=== PATIENT | female | born 1960 | race African-American/Black ===

== ENCOUNTER 2017-01-08 01:34 | Inpatient (IN) | payer OTHER ==
[~2017-01-08] VITALS: Ht 160 cm; Wt 58.1 kg
[2017-01-08] VITALS (7 sets, daily range): BP systolic 108–151; BP diastolic 68–99
[2017-01-08] MEDS ORDERED: Solu-MEDROL 125mg Inj IVP ONE (01:45)
[2017-01-08] MEDS ORDERED: Ipratropium 0.02% Inh Soln 2.5ml UD HHN ONE (01:45)
[2017-01-08] MEDS ORDERED: Albuterol ud Inhalation HHN ONE (01:45)
--- NOTE | 2017-01-08 02:20 | Emergency Room Report ---
History of Present Illness General Chief Complaint: Dyspnea/Respdistress Source: Patient, Family Member, EMS Present Illness HPI This is a 56-year-old female who has a history of asthma and heart failure. She was a smoker but supposedly quit 2 weeks ago. She also has history of crack cocaine abuse per her brother. She supposedly quit also. She usually lives in [place]. She moved back to this area to take care of her mom. She called brother jonna saying that she felt very short of breath. He told her to call 911. She tried to drive to see him. She came to see her and saw that there was a half smoke cigarettes in the doorway. She was in severe rest or distress so he called 911. EMS said that she was found in a car and was very hypoxic and respiratory distress. They put her on oxygen brought her here. She refused an IV. Denies any smoking or drug use. Said her inhaler is not helping her. She was using Dulera. Allergies: Coded Allergies: No Known Allergies (Unverified , 01/08/17) Patient History Past Medical History: see triage record, old chart reviewed, CHF, asthma Past Surgical History: other Pertinent Family History: none Social History: Reports: drug use - History, smoking Last Menstrual Period: unk Now: No Immunizations: other Reviewed Nursing Documentation: PMH: Agreed, PSxH: Agreed Nursing Documentation-PMH Past Medical History: No History, Except For Hx Asthma: Yes Review of Systems Eye: Denies: blurred vision, eye pain ENT: Denies: ear pain, nose congestion, throat swelling Respiratory: Reports: shortness of breath, Denies: cough Cardiovascular: Denies: chest pain, palpitations Gastrointestinal: Denies: abdominal pain, diarrhea, nausea, vomiting Musculoskeletal: Denies: back pain, joint pain Skin: Denies: rash Neurological: Denies: headache, numbness Endocrine: Denies: increased thirst, increased urine Hematologic/Lymphatic: Denies: easy bruising All Other Systems: negative except mentioned in HPI Physical Exam Vital Signs Date Time Temp Pulse Resp B/P Pulse Ox O2 Delivery O2 Flow Rate FiO2 01/08/17 01:25 98.2 105 22 150/111 98 Simple Mask 01/08/17 01:46 4.0 36 vitals with hypertension and tachycardia. Sp02 EP Interpretation: abnormal General Appearance: moderate distress, thin Head: normocephalic, atraumatic Eyes: bilateral eye EOMI, bilateral eye PERRL ENT: hearing grossly normal, normal pharynx Neck: full range of motion, supple, no meningismus, other - JVD Respiratory: chest non-tender, respiratory distress, decreased breath sounds, rales, wheezing Cardiovascular #1: regular rate, rhythm, no murmur, tachycardia Gastrointestinal: normal bowel sounds, non tender, no mass, no organomegaly, no bruit, non-distended Musculoskeletal: back normal, gait/station normal, normal range of motion Neurologic: alert, oriented x3, responsive Psychiatric: anxious - Combative Skin: warm/dry Procedures Critical Care Time Critical Care Time Critical care is mandated in this patient who presented with acute respiratory failure from cocaine and CHF. Patient require my urgent intervention to attenuate the risks of respiratory collapse which may lead to cardiovascular collapse and . Critical care time is 35 minutes excluding any reportable procedure. Critical care time included evaluation, multiple reevaluation, looking at old charts, interpreting laboratory and diagnostic data, discussing case with patient and family and consultants, and charting. Additional Procedure Procedure Narrative Procedure: IV access Indication: Poor IV access Description: Nursing staff was having difficulty putting peripheral IV in her arms she was not cooperative. I convinced her to let me placed an EJ. I placed an 18-gauge left EJ without any difficulty. Patient tolerated procedure without a problem. Medical Decision Making Diagnostic Impression: Primary Impression: Acute respiratory failure with hypoxia Additional Impressions: CHF exacerbation Qualified Codes: I50.9 - Heart failure, unspecified Asthma exacerbation Cocaine abuse Hypertensive CHF (congestive heart failure) UTI (urinary tract infection) Qualified Codes: N30.00 - Acute cystitis without hematuria Proteinuria Qualified Codes: R80.9 - Proteinuria, unspecified ER Course Patient presents with acute respiratory failure secondary to CHF exacerbation and asthma. She required BiPAP initially. She received treatment and Lasix. She diuresed about 1 L. She is doing much better now. Able to wean off the BiPAP 2 days of cannula oxygenation. No evidence of ACS, PE, dissection. We' ll admit for further workup. Laboratory Tests Test 01/08/17 02:00 White Blood Count 5.3 K/UL (4.8-10.8) Red Blood Count 4.24 M/UL (4.20-5.40) Hemoglobin 12.4 G/DL (12.0-16.0) Hematocrit 40.0 % (37.0-47.0) Mean Corpuscular Volume 94 FL (80-99) Mean Corpuscular Hemoglobin 29.3 PG (27.0-31.0) Mean Corpuscular Hemoglobin Concent 31.1 G/DL (32.0-36.0) L Red Cell Distribution Width 14.5 % (11.6-14.8) Platelet Count 181 K/UL (150-450) Mean Platelet Volume 6.4 FL (6.5-10.1) L Neutrophils (%) (Auto) 64.8 % (45.0-75.0) Lymphocytes (%) (Auto) 29.1 % (20.0-45.0) Monocytes (%) (Auto) 4.5 % (1.0-10.0) Eosinophils (%) (Auto) 0.5 % (0.0-3.0) Basophils (%) (Auto) 1.1 % (0.0-2.0) Prothrombin Time 11.1 SEC (9.30-11.50) Prothromb Time International Ratio 1.1 (0.9-1.1) Activated Partial Thromboplast Time 26 SEC (23-33) Urine Color Pale yellow Urine Appearance Clear Urine pH 5 (4.5-8.0) Urine Specific [place] 1.020 (1.005-1.035) Urine Protein 2+ (NEGATIVE) H Urine Glucose (UA) Negative (NEGATIVE) Urine Ketones Negative (NEGATIVE) Urine Occult Blood Negative (NEGATIVE) Urine Nitrite Negative (NEGATIVE) Urine Bilirubin Negative (NEGATIVE) Urine Urobilinogen Normal MG/DL (0.0-1.0) Urine Leukocyte Esterase 2+ (NEGATIVE) H Urine RBC 2-4 /HPF (0 - 2) H Urine WBC 15-20 /HPF (0 - 2) H Urine Squamous Epithelial Cells Few /LPF (NONE/OCC) Urine Amorphous Sediment Moderate /LPF (NONE) H Urine Bacteria Moderate /HPF (NONE) H Sodium Level 139 mEQ/L (135-145) Potassium Level 4.5 mEQ/L (3.4-4.9) Chloride Level 100 mEQ/L (98-107) Carbon Dioxide Level 24 mEQ/L (20-30) Anion Gap 15 (5-15) Blood Urea Nitrogen 22 mg/dL (7-23) Creatinine 1.2 mg/dL (0.5-0.9) H Estimat Glomerular Filtration Rate 56.1 mL/min (>60) Glucose Level 172 mg/dL (74-106) H Lactic Acid Level 1.30 mmol/L (0.66-2.22) Calcium Level 9.5 mg/dL (8.6-10.2) Total Bilirubin 0.6 mg/dL (0.0-1.2) Aspartate Amino Transf (AST/SGOT) 25 U/L (5-40) Alanine Aminotransferase (ALT/SGPT) 37 U/L (3-33) H Alkaline Phosphatase 141 U/L (35-104) H Total Creatine Kinase 92 U/L (26-140) Creatine Kinase MB 2.6 ng/mL (< 3.8) Creatine Kinase MB Relative Index 2.8 Troponin I < 0.30 ng/mL (<=0.30) Pro-B-Type Natriuretic Peptide 5028 pg/mL (0-125) H Total Protein 6.6 g/dL (6.6-8.7) Albumin 3.7 g/dL (3.5-5.2) Globulin 2.9 g/dL Albumin/Globulin Ratio 1.2 (1.0-2.7) Urine Opiates Screen Negative (NEGATIVE) Urine Barbiturates Screen Negative (NEGATIVE) Phencyclidine (PCP) Screen Negative (NEGATIVE) Urine Amphetamines Screen Negative (NEGATIVE) Urine Benzodiazepines Screen Negative (NEGATIVE) Urine Cocaine Screen Positive (NEGATIVE) H Urine Marijuana (THC) Screen Negative (NEGATIVE) Lab Results Impression labs show elevated BNP EKG Diagnostic Results Rate: normal Rhythm: NSR ST Segments: other - LBBB. Rhythm Strip Diag. Results EP Interpretation: yes Rate: 96 Rhythm: NSR, no PVC's, no ectopy Chest X-Ray Diagnostic Results EP Interpretation: Yes Findings: no effusion, no pneumothorax, other - CHF Number of Views: 1 Last Vital Signs Date Time Temp Pulse Resp B/P Pulse Ox O2 Delivery O2 Flow Rate FiO2 01/08/17 02:11 93 26 100 Bi-pap 35 01/08/17 01:48 4.0 01/08/17 01:25 98.2 150/111 Status: improved Disposition: ADMITTED INPATIENT Condition: Critical Referrals: [facility],REFERRING (PCP) HAYES FOY M.D. Jan 08, 2017 02:20
[2017-01-08 02:26] LABS: BASOPHILS % (AUTO) 1.1 % (0.0-2.0); EOSINOPHILS % (AUTO) 0.5 % (0.0-3.0); LYMPHOCYTES % (AUTO) 29.1 % (20.0-45.0); MEAN CORPUSCULAR HEMOGLOBIN 29.3 PG (27.0-31.0); MEAN CORPUSCULAR HGB CONC 31.1 G/DL (32.0-36.0); MEAN CORPUSCULAR VOLUME 94 FL (80-99); MEAN PLATELET VOLUME 6.4 FL (6.5-10.1); MONOCYTES % (AUTO) 4.5 % (1.0-10.0); NEUTROPHILS % (AUTO) 64.8 % (45.0-75.0); PLATELET COUNT 181 K/UL (150-450); RED BLOOD COUNT 4.24 M/UL (4.20-5.40); RED CELL DISTRIBUTION WIDTH 14.5 % (11.6-14.8); WHITE BLOOD COUNT 5.3 K/UL (4.8-10.8)
[2017-01-08 02:30] LABS: APPEARANCE,URINE CLEAR; KETONES,URINE NEGATIVE (NEGATIVE); LEUKOCYTE ESTERASE ,URINE 2+ (NEGATIVE); NITRITE,URINE NEGATIVE (NEGATIVE); PH,URINE 5 (4.5-8.0); PROTEIN,URINE 2+ (NEGATIVE); UROBILINOGEN,URINE NORMAL MG/DL (0.0-1.0)
[2017-01-08 02:35] LABS: SQUAMOUS EPITHELIAL CELL,UR FEW /LPF (NONE/OCC); WBC,URINE 15-20 /HPF (0 - 2)
[2017-01-08 02:36] LABS: AMORPHOUS SEDIMENT,UR MODERATE /LPF; BACTERIA,URINE MODERATE /HPF
[2017-01-08 02:39] LABS: ALBUMIN/GLOBULIN RATIO 1.2 (1.0-2.7); CALCIUM 9.5 mg/dL (8.6-10.2); CREATININE 1.2 mg/dL (0.5-0.9); GLOMERULAR FILTRATION RATE 56.1 mL/min (>60); POTASSIUM 4.5 mEQ/L (3.4-4.9); TOTAL PROTEIN 6.6 g/dL (6.6-8.7)
[2017-01-08 02:40] LABS: INR 1.1 (0.9-1.1); PROTHROMBIN TIME 11.1 SEC (9.30-11.50)
[2017-01-08 02:41] LABS: TROPONIN I < 0.30 ng/mL (<=0.30)
[2017-01-08 02:50] LABS: CKMB 2.6 ng/mL (< 3.8)
[2017-01-08] MEDS ORDERED: cefTRIAXone 1 GM in NS 55 ML IVPB ONE (03:00)
[2017-01-08] MEDS ORDERED: Tubing IV Cassette IV ONE (03:01)
[2017-01-08] MEDS ORDERED: NS 55 ML IV ONE (03:01)
[2017-01-08] MEDS ORDERED: DULERA 100 MCG/13 GM INH (03:38)
[2017-01-08] MEDS ORDERED: Miralax 17gm pkt ORAL PRN (06:15)
[2017-01-08] MEDS ORDERED: DuoNeb 0.5-3(2.5)mg/3ml neb HHN PRN (06:15)
--- NOTE | 2017-01-08 08:45 | Diagnostic Imaging Report ---
Indications: Shortness of breath Technique: Portable AP chest Findings: Comparison: None Cardiac silhouette enlarged. Pulmonary vascular redistribution. Bilateral interstitial infiltrates. Linear and patchy opacities in the lateral aspect of right lung base, overlying elevated left hemidiaphragm. Left costophrenic angle mildly indistinct; right sharp. Aortic arch mildly calcified. IMPRESSION: Findings compatible with congestive heart failure with interstitial edema and suggestion of small left pleural effusion Superimposed subsegmental atelectasis left lung base with elevation of the subjacent left hemidiaphragm, acuity indeterminate. Superimposed focal pneumonia not excludable.
[2017-01-08] MEDS: Heparin 5000 units/ml inj SUBQ SCH ×2 (09:00→21:00)
--- NOTE | 2017-01-08 11:24 | History and Physical ---
History of Present Illness General Date patient seen: Jan 08, 2017 Reason for Hospitalization: Dyspnea/Respdistress Present Illness HPI 56-year-old female with hx of COPD, CHF, various drug abuse, who has a history of asthma and heart failure brought in by paramedics b/o respiratory distress. EMS said that she was found in a car and was very hypoxic and respiratory distress. She was put on BIPAp in in Er and received lasix in ER. she improved somewhat and was transferred to telemetry for further work up. Allergies: Coded Allergies: No Known Allergies (Unverified , 01/08/17) Medication History Scheduled Mometasone/Formoterol (Dulera 100 Mcg/5 Mcg Inhaler), 2 PUFFS INH EVERY 12 HOURS , (Reported) Patient History Healthcare decision maker Resuscitation status Full Code Advanced Directive on File No Past Medical/Surgical History Past Medical/Surgical History: (1) COPD (chronic obstructive pulmonary disease) (2) CHF (congestive heart failure) (3) Cocaine abuse Review of Systems All Other Systems: negative except mentioned in HPI Physical Exam General Appearance: WD/WN Lines, tubes and drains: peripheral HEENT: normocephalic, atraumatic Neck: non-tender, normal alignment Respiratory/Chest: chest wall non-tender, rhonchi - bilaterally Breasts: no masses Cardiovascular/Chest: normal peripheral pulses Abdomen: normal bowel sounds Genitourinary/Rectal: normal genital exam Extremities: normal range of motion Last 24 Hour Vital Signs Date Time Temp Pulse Resp B/P Pulse Ox O2 Delivery O2 Flow Rate FiO2 01/08/17 08:20 Nasal Cannula 4.0 36 01/08/17 08:20 102 25 Nasal Cannula 4.0 36 01/08/17 08:20 96 Nasal Cannula 4.0 36 01/08/17 08:00 97.7 92 21 132/76 98 Room Air 01/08/17 05:03 91 18 128/82 98 Nasal Cannula 4.0 01/08/17 04:55 97.0 97 20 143/97 91 Nasal Cannula 2.0 01/08/17 03:37 96 18 100 3.0 32 01/08/17 03:33 91 18 128/82 100 Bi-pap 35 01/08/17 02:29 90 20 151/99 98 Bi-pap 35 01/08/17 02:15 35 01/08/17 02:11 93 26 100 Bi-pap 35 01/08/17 02:10 93 26 100 Facial 35 01/08/17 01:48 105 25 97 Nasal Cannula 4.0 36 01/08/17 01:48 36 01/08/17 01:46 105 25 Nasal Cannula 4.0 36 01/08/17 01:40 105 35 Simple Mask 4.0 01/08/17 01:25 98.2 105 22 150/111 98 Simple Mask Intake and Output 01/07/17 01/08/17 19:00 07:00 Intake Total 55 ml Output Total 3700 ml Balance -3645 ml Intake IV Total 55 ml Output Urine Total 3700 ml Laboratory Tests Test 01/08/17 02:00 White Blood Count 5.3 K/UL (4.8-10.8) Red Blood Count 4.24 M/UL (4.20-5.40) Hemoglobin 12.4 G/DL (12.0-16.0) Hematocrit 40.0 % (37.0-47.0) Mean Corpuscular Volume 94 FL (80-99) Mean Corpuscular Hemoglobin 29.3 PG (27.0-31.0) Mean Corpuscular Hemoglobin Concent 31.1 G/DL (32.0-36.0) L Red Cell Distribution Width 14.5 % (11.6-14.8) Platelet Count 181 K/UL (150-450) Mean Platelet Volume 6.4 FL (6.5-10.1) L Neutrophils (%) (Auto) 64.8 % (45.0-75.0) Lymphocytes (%) (Auto) 29.1 % (20.0-45.0) Monocytes (%) (Auto) 4.5 % (1.0-10.0) Eosinophils (%) (Auto) 0.5 % (0.0-3.0) Basophils (%) (Auto) 1.1 % (0.0-2.0) Prothrombin Time 11.1 SEC (9.30-11.50) Prothromb Time International Ratio 1.1 (0.9-1.1) Activated Partial Thromboplast Time 26 SEC (23-33) Urine Color Pale yellow Urine Appearance Clear Urine pH 5 (4.5-8.0) Urine Specific [place] 1.020 (1.005-1.035) Urine Protein 2+ (NEGATIVE) H Urine Glucose (UA) Negative (NEGATIVE) Urine Ketones Negative (NEGATIVE) Urine Occult Blood Negative (NEGATIVE) Urine Nitrite Negative (NEGATIVE) Urine Bilirubin Negative (NEGATIVE) Urine Urobilinogen Normal MG/DL (0.0-1.0) Urine Leukocyte Esterase 2+ (NEGATIVE) H Urine RBC 2-4 /HPF (0 - 2) H Urine WBC 15-20 /HPF (0 - 2) H Urine Squamous Epithelial Cells Few /LPF (NONE/OCC) Urine Amorphous Sediment Moderate /LPF (NONE) H Urine Bacteria Moderate /HPF (NONE) H Sodium Level 139 mEQ/L (135-145) Potassium Level 4.5 mEQ/L (3.4-4.9) Chloride Level 100 mEQ/L (98-107) Carbon Dioxide Level 24 mEQ/L (20-30) Anion Gap 15 (5-15) Blood Urea Nitrogen 22 mg/dL (7-23) Creatinine 1.2 mg/dL (0.5-0.9) H Estimat Glomerular Filtration Rate 56.1 mL/min (>60) Glucose Level 172 mg/dL (74-106) H Lactic Acid Level 1.30 mmol/L (0.66-2.22) Calcium Level 9.5 mg/dL (8.6-10.2) Total Bilirubin 0.6 mg/dL (0.0-1.2) Aspartate Amino Transf (AST/SGOT) 25 U/L (5-40) Alanine Aminotransferase (ALT/SGPT) 37 U/L (3-33) H Alkaline Phosphatase 141 U/L (35-104) H Total Creatine Kinase 92 U/L (26-140) Creatine Kinase MB 2.6 ng/mL (< 3.8) Creatine Kinase MB Relative Index 2.8 Troponin I < 0.30 ng/mL (<=0.30) Pro-B-Type Natriuretic Peptide 5028 pg/mL (0-125) H Total Protein 6.6 g/dL (6.6-8.7) Albumin 3.7 g/dL (3.5-5.2) Globulin 2.9 g/dL Albumin/Globulin Ratio 1.2 (1.0-2.7) Urine Opiates Screen Negative (NEGATIVE) Urine Barbiturates Screen Negative (NEGATIVE) Phencyclidine (PCP) Screen Negative (NEGATIVE) Urine Amphetamines Screen Negative (NEGATIVE) Urine Benzodiazepines Screen Negative (NEGATIVE) Urine Cocaine Screen Positive (NEGATIVE) H Urine Marijuana (THC) Screen Negative (NEGATIVE) Height (Feet): 5 Height (Inches): 3.00 Weight (Pounds): 145 Medications Current Medications Medications (Trade) Dose Ordered Sig/Suzanne Route PRN Reason Start Time Stop Time Status Last Admin Dose Admin Acetaminophen (Tylenol) 650 mg Q4H PRN ORAL Fever 01/08/17 06:15 02/07/17 06:14 01/08/17 10:51 Albuterol/ Ipratropium (DuoNeb 0.5-3(2.5)mg/3ml) 3 ml EVERY 4 HOURS PRN HHN Shortness of Breath 01/08/17 06:15 01/13/17 06:14 Dextrose (Dextrose 50%) STAT PRN IV Hypoglycemia 01/08/17 06:15 02/07/17 06:14 Heparin Sodium (Porcine) (Heparin 5000 units/ml) 5,000 units EVERY 12 HOURS SUBQ 01/08/17 09:00 02/07/17 08:59 Ondansetron HCl (Zofran) 4 mg Q6H PRN IVP Nausea & Vomiting 01/08/17 06:15 02/07/17 06:14 Polyethylene Glycol (Miralax) 17 gm DAILYPRN PRN ORAL Constipation 01/08/17 06:15 02/07/17 06:14 Temazepam (Restoril) 15 mg HSPRN PRN ORAL Insomnia 01/08/17 06:15 01/15/17 06:14 01/08/17 10:46 Assessment/Plan Problem List: (1) Acute respiratory failure with hypoxia ICD Codes: J96.01 - Acute respiratory failure with hypoxia SNOMED: 18822634, 301123491 (2) COPD (chronic obstructive pulmonary disease) ICD Codes: J44.9 - Chronic obstructive pulmonary disease, unspecified SNOMED: 63200372 (3) CHF exacerbation ICD Codes: I50.9 - Heart failure, unspecified SNOMED: 76382152, 560255374 Qualifiers: Qualified Codes: I50.9 - Heart failure, unspecified (4) Asthma exacerbation ICD Codes: J45.901 - Unspecified asthma with (acute) exacerbation SNOMED: 671858310 (5) Cocaine abuse ICD Codes: F14.10 - Cocaine abuse, uncomplicated SNOMED: 94430443, 727383151 Assessment/Plan iv abx diuretics sputum for c/w respiratory rx check sputum cardio to see as well cxr in a few days VIRGIL DUFFY Jan 08, 2017 11:24
--- NOTE | 2017-01-08 13:33 | Diagnostic Imaging Report ---
Indications: Elevated renal function tests Technique: Transabdominal real-time grayscale and duplex Doppler imaging of the kidneys, retroperitoneum, and urinary bladder was performed Findings: Comparison: None Right kidney measures 10.4 cm in length. Normal contour, echotexture, cortical thickness. No stones, other focal lesions, hydronephrosis, or obvious perinephric abnormalities. Left kidney measures 10.1 cm in length. Normal contour, echotexture, cortical thickness. No stones, other focal lesions, hydronephrosis, or obvious perinephric abnormalities. The intrahepatic portion of inferior vena cava is patent and normal caliber. The urinary bladder is distended despite Salas catheter in place.. IMPRESSION: Sonographically unremarkable kidneys Urinary bladder distention. Check Salas patency.
--- NOTE | 2017-01-08 23:06 | Diagnostic Imaging Report ---
APPROVED REPORT CPT Code: 10324 Present Symptoms Shortness of breath Comments: Pain BILATERAL: Imaging reveals a patent deep venous system bilaterally. There is no evidence of thrombus within the femoral, popliteal or tibial segments. The greater saphenous veins are also within normal limits. Doppler indicates normal spontaneous flow within these segments.
[2017-01-09 00:23] VITALS: BP 119/67
[2017-01-09 04:07] VITALS: BP 122/77
[2017-01-09 08:12] VITALS: BP 127/85
[2017-01-09] MEDS: Heparin 5000 units/ml inj SUBQ SCH ×2 (08:49→21:23)
[2017-01-09 10:08] LABS: EOSINOPHILS % (AUTO) 0.4 % (0.0-3.0); LYMPHOCYTES % (AUTO) 21.4 % (20.0-45.0); MEAN CORPUSCULAR HEMOGLOBIN 29.4 PG (27.0-31.0); MEAN CORPUSCULAR HGB CONC 31.4 G/DL (32.0-36.0); MEAN CORPUSCULAR VOLUME 94 FL (80-99); MEAN PLATELET VOLUME 7.2 FL (6.5-10.1); MONOCYTES % (AUTO) 6.2 % (1.0-10.0); PLATELET COUNT 302 K/UL (150-450); WHITE BLOOD COUNT 8.4 K/UL (4.8-10.8)
[2017-01-09] MEDS ORDERED: NS 275ml ONE (10:16)
[2017-01-09] MEDS ORDERED: Tubing IV Secondary IV ONE (10:16)
[2017-01-09 10:22] LABS: TROPONIN I < 0.30 ng/mL (<=0.30)
[2017-01-09 10:37] LABS: CALCIUM 9.8 mg/dL (8.6-10.2); CREATININE 1.3 mg/dL (0.5-0.9); GLOMERULAR FILTRATION RATE 51.1 mL/min (>60); PHOSPHORUS 4.3 mg/dL (2.5-4.8); POTASSIUM 4.3 mEQ/L (3.4-4.9)
--- NOTE | 2017-01-09 10:57 | Diagnostic Imaging Report ---
Indication: DYSPNEA, cough Technique: One view of the chest Comparison: 01/08/2017 Findings: The heart is enlarged. Bilateral interstitial and airspace opacities are again demonstrated, appear unchanged. There may be a small pleural effusion on the left. Again demonstrated is an old healed right clavicular fracture deformity. Impression: Unchanged, over one day, findings as above.
[2017-01-09 12:15] VITALS: BP 132/85
--- NOTE | 2017-01-09 14:27 | Pulmonology Progress Note ---
Assessment/Plan Problems: (1) Acute respiratory failure with hypoxia (2) COPD (chronic obstructive pulmonary disease) (3) CHF exacerbation (4) Asthma exacerbation (5) Cocaine abuse Assessment/Plan improving cxr didnt show much changes respiratory treatment. awaiting cardiology continue lasix Subjective ROS Limited/Unobtainable: No Interval Events: less short of breath Constitutional: Reports: no symptoms HEENT: Repors: no symptoms Respiratory: Reports: no symptoms Allergies: Coded Allergies: No Known Allergies (Unverified , 01/08/17) Objective Last 24 Hour Vital Signs Date Time Temp Pulse Resp B/P Pulse Ox O2 Delivery O2 Flow Rate FiO2 01/09/17 12:15 97.8 91 20 132/85 99 Room Air 01/09/17 12:00 96 01/09/17 09:20 99 Nasal Cannula 2.0 28 01/09/17 09:20 Nasal Cannula 2.0 28 01/09/17 09:19 82 23 Nasal Cannula 2.0 28 01/09/17 08:12 97.3 93 20 127/85 95 Nasal Cannula 3.5 01/09/17 08:00 96 01/09/17 04:07 98.3 83 17 122/77 95 Room Air 01/09/17 04:00 99 01/09/17 00:23 98.8 88 19 119/67 97 Room Air 01/09/17 00:00 89 01/08/17 22:58 94 01/08/17 20:36 Nasal Cannula 2.0 28 01/08/17 20:36 99 Nasal Cannula 2.0 28 01/08/17 20:36 97 22 Nasal Cannula 2.0 28 01/08/17 20:00 98.0 92 18 115/71 97 Room Air 01/08/17 17:56 97.9 01/08/17 16:00 96 01/08/17 15:56 97.9 90 20 110/68 96 Nasal Cannula 2.0 Intake and Output 01/08/17 01/09/17 19:00 07:00 Intake Total 250 ml Output Total 400 ml 1300 ml Balance -150 ml -1300 ml Intake Oral 250 ml Output Urine Total 400 ml 1300 ml General Appearance: WD/WN HEENT: normocephalic, atraumatic Respiratory/Chest: chest wall non-tender, lungs clear Cardiovascular: normal peripheral pulses, normal rate Abdomen: normal bowel sounds, soft, non tender Genitourinary: normal external genitalia Extremities: no clubbing Skin: no rash Microbiology Date/Time Source Procedure Growth Status 01/08/17 02:00 Blood Blood Culture - Preliminary NO GROWTH AFTER 24 HOURS Resulted 01/08/17 01:45 Blood Blood Culture - Preliminary NO GROWTH AFTER 24 HOURS Resulted 01/08/17 02:00 Urine,Clean Catch Urine Culture - Preliminary NO GROWTH AFTER 24 HOURS Resulted Laboratory Tests 01/09/17 09:30: White Blood Count 8.4#, Red Blood Count 4.90, Hemoglobin 14.4, Hematocrit 45.9, Mean Corpuscular Volume 94, Mean Corpuscular Hemoglobin 29.4, Mean Corpuscular Hemoglobin Concent 31.4L, Red Cell Distribution Width 14.0, Platelet Count 302# , Mean Platelet Volume 7.2, Neutrophils (%) (Auto) 71.0, Lymphocytes (%) (Auto) 21.4, Monocytes (%) (Auto) 6.2, Eosinophils (%) (Auto) 0.4, Basophils (%) (Auto ) 1.0, Sodium Level 141, Potassium Level 4.3, Chloride Level 99, Carbon Dioxide Level 27, Anion Gap 15, Blood Urea Nitrogen 26H, Creatinine 1.3H, Estimat Glomerular Filtration Rate 51.1, Glucose Level 120H, Calcium Level 9.8, Phosphorus Level 4.3, Troponin I < 0.30, Albumin 3.7 Current Medications Medications (Trade) Dose Ordered Sig/Suzanne Route PRN Reason Start Time Stop Time Status Last Admin Dose Admin Acetaminophen (Tylenol) 650 mg Q4H PRN ORAL Fever 01/08/17 06:15 02/07/17 06:14 01/09/17 00:22 Albuterol/ Ipratropium (DuoNeb 0.5-3(2.5)mg/3ml) 3 ml EVERY 4 HOURS PRN HHN Shortness of Breath 01/08/17 06:15 01/13/17 06:14 Dextrose STAT PRN IV Hypoglycemia 01/08/17 06:15 02/07/17 06:14 Heparin Sodium (Porcine) (Heparin 5000 units/ml) 5,000 units EVERY 12 HOURS SUBQ 01/08/17 09:00 02/07/17 08:59 01/09/17 08:49 Levofloxacin (Levaquin) 50 ml @ 50 mls/hr Q24H IVPB 01/10/17 13:00 01/15/17 12:59 Ondansetron HCl (Zofran) 4 mg Q6H PRN IVP Nausea & Vomiting 01/08/17 06:15 02/07/17 06:14 Polyethylene Glycol (Miralax) 17 gm DAILYPRN PRN ORAL Constipation 01/08/17 06:15 02/07/17 06:14 Temazepam (Restoril) 15 mg HSPRN PRN ORAL Insomnia 01/08/17 06:15 01/15/17 06:14 01/08/17 10:46 VIRGIL DUFFY Jan 09, 2017 14:27
[2017-01-09 16:18] VITALS: BP 125/81
--- NOTE | 2017-01-09 19:50 | Cardiology Progress Note ---
Assessment/Plan Assessment/Plan [id number] cm chf mr cocaine abue tobacco use do diurtic acei bbin a few dasy na fluid restiriction avodi oc coaine / tobacoo d/w pt Objective Last 24 Hour Vital Signs Date Time Temp Pulse Resp B/P Pulse Ox O2 Delivery O2 Flow Rate FiO2 01/09/17 19:33 99 Nasal Cannula 2.0 28 01/09/17 19:33 Nasal Cannula 2.0 28 01/09/17 19:33 90 20 Nasal Cannula 2.0 28 01/09/17 16:23 104 01/09/17 16:18 97.7 101 20 125/81 97 Room Air 01/09/17 12:15 97.8 91 20 132/85 99 Room Air 01/09/17 12:00 96 01/09/17 09:20 99 Nasal Cannula 2.0 28 01/09/17 09:20 Nasal Cannula 2.0 28 01/09/17 09:19 82 23 Nasal Cannula 2.0 28 01/09/17 08:12 97.3 93 20 127/85 95 Nasal Cannula 3.5 01/09/17 08:00 96 01/09/17 04:07 98.3 83 17 122/77 95 Room Air 01/09/17 04:00 99 01/09/17 00:23 98.8 88 19 119/67 97 Room Air 01/09/17 00:00 89 01/08/17 22:58 94 01/08/17 20:36 Nasal Cannula 2.0 28 01/08/17 20:36 99 Nasal Cannula 2.0 28 01/08/17 20:36 97 22 Nasal Cannula 2.0 28 01/08/17 20:00 98.0 92 18 115/71 97 Room Air Intake and Output 01/08/17 01/09/17 19:00 07:00 Intake Total 250 ml Output Total 400 ml 1300 ml Balance -150 ml -1300 ml Intake Oral 250 ml Output Urine Total 400 ml 1300 ml Laboratory Tests Test 01/09/17 09:30 White Blood Count 8.4 K/UL (4.8-10.8) # Red Blood Count 4.90 M/UL (4.20-5.40) Hemoglobin 14.4 G/DL (12.0-16.0) Hematocrit 45.9 % (37.0-47.0) Mean Corpuscular Volume 94 FL (80-99) Mean Corpuscular Hemoglobin 29.4 PG (27.0-31.0) Mean Corpuscular Hemoglobin Concent 31.4 G/DL (32.0-36.0) L Red Cell Distribution Width 14.0 % (11.6-14.8) Platelet Count 302 K/UL (150-450) # Mean Platelet Volume 7.2 FL (6.5-10.1) Neutrophils (%) (Auto) 71.0 % (45.0-75.0) Lymphocytes (%) (Auto) 21.4 % (20.0-45.0) Monocytes (%) (Auto) 6.2 % (1.0-10.0) Eosinophils (%) (Auto) 0.4 % (0.0-3.0) Basophils (%) (Auto) 1.0 % (0.0-2.0) Sodium Level 141 mEQ/L (135-145) Potassium Level 4.3 mEQ/L (3.4-4.9) Chloride Level 99 mEQ/L (98-107) Carbon Dioxide Level 27 mEQ/L (20-30) Anion Gap 15 (5-15) Blood Urea Nitrogen 26 mg/dL (7-23) H Creatinine 1.3 mg/dL (0.5-0.9) H Estimat Glomerular Filtration Rate 51.1 mL/min (>60) Glucose Level 120 mg/dL (74-106) H Calcium Level 9.8 mg/dL (8.6-10.2) Phosphorus Level 4.3 mg/dL (2.5-4.8) Troponin I < 0.30 ng/mL (<=0.30) Albumin 3.7 g/dL (3.5-5.2) Microbiology Date/Time Source Procedure Growth Status 01/08/17 02:00 Blood Blood Culture - Preliminary NO GROWTH AFTER 24 HOURS Resulted 01/08/17 01:45 Blood Blood Culture - Preliminary NO GROWTH AFTER 24 HOURS Resulted 01/08/17 02:00 Urine,Clean Catch Urine Culture - Preliminary NO GROWTH AFTER 24 HOURS Resulted BILL ALBERT Jan 09, 2017 19:50
[2017-01-09 20:00] VITALS: BP 127/78
--- NOTE | 2017-01-09 21:07 | Cardiology Report ---
APPROVED REPORT EKG Measurement Heart [id number] Normal sinus rhythm Biatrial enlargement Non-specific IVCD Abnormal ECG
[2017-01-09] MEDS: Lisinopril 2.5mg tab ORAL SCH (21:21)
[2017-01-10] VITALS: BP 117/69
--- NOTE | 2017-01-10 02:58 | Consultation ---
DATE OF CONSULTATION: 01/09/2017 CARDIOLOGY CONSULTATION CONSULTING PHYSICIAN: Jurgen Caputo M.D. REFERRING PHYSICIAN: Fabio Garcia M.D. REASON FOR CONSULTATION: Congestive heart failure. HISTORY OF PRESENT ILLNESS: This is a 56-year-old female, who presented to the hospital because of shortness of breath that has been going on for approximately two weeks. She has shortness of breath with rest and with activity. She does wake up at night because of shortness of breath. Uses two or three pillows and when she wakes up at night because of shortness of breath, she has to sleep to side of the bed to get some fresh air outside and then come back and try to sleep, but she cannot lay down because of the shortness of breath. She has occasional chest pains, although not recently. The patient has palpitation. No dizziness or lightheadedness. PAST MEDICAL HISTORY: Positive for history of high blood pressure. No history of heart attack. No cancer. No stroke. No hepatitis or tuberculosis. She does have a history of asthma. No history of ulcers. No kidney problems, liver problems, or thyroid problems. She does have history of anemia. ALLERGIES: She is not allergic to any medications. SOCIAL HISTORY: She used to smoke until two weeks ago. No alcohol use. She used to use drugs until two weeks ago, cocaine. REVIEW OF SYSTEMS: Gastrointestinal: She has had some nausea and vomiting. Some constipation. No bloody or black stools. Genitourinary: Negative. Pulmonary: Positive for coughing and wheezing. Constitutional: She feels hot all the time. PHYSICAL EXAMINATION: GENERAL: Shows to be a middle-aged female, who looks older than her stated age. NECK: Supple. No jugular venous distention. LUNGS: Appear to show adequate air entry. There is no crackles except for the basilar areas. CARDIAC: Regular rate and rhythm. No heaves. No thrills. No gallops noted. ABDOMEN: Soft and nontender. Positive bowel sounds. EXTREMITIES: There is no clubbing, cyanosis, or edema. NEUROLOGIC: She is awake, alert, responsive, in no apparent distress. LABORATORY AND DIAGNOSTIC VALUES: White count of 8.4, hemoglobin 14.4, and platelet count of 302,000. Sodium is 141, potassium 4.3, chloride 99, bicarbonate 27, BUN 26, creatinine 1.3, and glucose of 120. Troponin less than 0.3 on two separate occasions. ProBNP of 5000. INR is 1.1 and a PTT of 26. Urine, 15 to 20 WBCs, 2 to 4 RBCs, and 2+ leukocyte esterase. Toxicology screen is positive for cocaine. A chest x-ray performed in the emergency room shows heart not enlarged, bilateral interstitial and air space opacities demonstrated, may be small pleural effusions on the left side. Old healed clavicular fracture is noted. Preliminary echocardiogram, global hypokinesis, ejection fraction of 30% to 35%, significant mitral regurgitation, elevated left atrial pressure as well as diastolic dysfunction. EKG shows left bundle-branch conduction defect. ASSESSMENT: 1. Cardiomyopathy. 2. Congestive heart failure, acute, systolic. 3. Mitral regurgitation. 4. History of cocaine abuse. 5. History of tobacco abuse. PLAN: Dr. Garcia, this patient was seen in cardiac consultation. We will continue the patient's treatment with YE inhibitors and diuretics and in a few days, we will start the patient on low-dose Coreg with alpha and beta-aristeo capacities. Sodium and fluid restriction discussed with the patient. I will follow the patient along with you. Jurgen Caputo M.D. DR: ALVIN JOB#: [id number] CC:
[2017-01-10 03:57] VITALS: BP 110/73
[2017-01-10 08:11] LABS: BASOPHILS % (AUTO) 1.8 % (0.0-2.0); EOSINOPHILS % (AUTO) 0.6 % (0.0-3.0); LYMPHOCYTES % (AUTO) 27.1 % (20.0-45.0); MEAN CORPUSCULAR HEMOGLOBIN 29.3 PG (27.0-31.0); MEAN CORPUSCULAR HGB CONC 31.1 G/DL (32.0-36.0); MEAN CORPUSCULAR VOLUME 94 FL (80-99); MEAN PLATELET VOLUME 6.7 FL (6.5-10.1); NEUTROPHILS % (AUTO) 64.5 % (45.0-75.0); PLATELET COUNT 313 K/UL (150-450); RED BLOOD COUNT 5.17 M/UL (4.20-5.40); RED CELL DISTRIBUTION WIDTH 14.2 % (11.6-14.8); WHITE BLOOD COUNT 5.8 K/UL (4.8-10.8)
[2017-01-10 08:25] VITALS: BP 104/61
[2017-01-10] MEDS: Lisinopril 2.5mg tab ORAL SCH ×2 (08:31→21:26)
[2017-01-10 08:32] LABS: TROPONIN I < 0.30 ng/mL (<=0.30)
[2017-01-10] MEDS: Heparin 5000 units/ml inj SUBQ SCH ×2 (08:32→21:27)
[2017-01-10 08:44] LABS: ALBUMIN/GLOBULIN RATIO 1.2 (1.0-2.7); CALCIUM 9.8 mg/dL (8.6-10.2); CREATININE 1.4 mg/dL (0.5-0.9); GLOMERULAR FILTRATION RATE 46.9 mL/min (>60); TOTAL PROTEIN 6.5 g/dL (6.6-8.7)
[2017-01-10 11:28] VITALS: BP 115/77
--- NOTE | 2017-01-10 11:30 | Pulmonology Progress Note ---
Assessment/Plan Problems: (1) Acute respiratory failure with hypoxia (2) COPD (chronic obstructive pulmonary disease) (3) CHF exacerbation (4) Asthma exacerbation (5) Cocaine abuse Assessment/Plan improving respiratory treatment. awaiting cardiology continue lasix dc home when ok with cardiology Subjective ROS Limited/Unobtainable: No Interval Events: no sob, wants to go home Allergies: Coded Allergies: No Known Allergies (Unverified , 01/08/17) Objective Last 24 Hour Vital Signs Date Time Temp Pulse Resp B/P Pulse Ox O2 Delivery O2 Flow Rate FiO2 01/10/17 08:31 104/61 01/10/17 08:25 97.5 91 20 104/61 95 Nasal Cannula 3.0 01/10/17 04:00 98 01/10/17 03:57 97.7 92 20 110/73 97 Nasal Cannula 3.0 01/10/17 00:00 88 01/10/17 00:00 97.7 93 20 117/69 Nasal Cannula 3.0 01/09/17 21:21 127/78 01/09/17 20:00 96 01/09/17 20:00 97.9 92 20 127/78 Nasal Cannula 3.0 01/09/17 19:33 99 Nasal Cannula 2.0 28 01/09/17 19:33 Nasal Cannula 2.0 28 01/09/17 19:33 90 20 Nasal Cannula 2.0 28 01/09/17 16:23 104 01/09/17 16:18 97.7 101 20 125/81 97 Room Air 01/09/17 12:15 97.8 91 20 132/85 99 Room Air 01/09/17 12:00 96 Intake and Output 01/09/17 01/10/17 19:00 07:00 Intake Total 700 ml 100 ml Output Total 800 ml 1100 ml Balance -100 ml -1000 ml Intake Oral 600 ml 100 ml IV Total 100 ml Output Urine Total 800 ml 1100 ml General Appearance: cachetic HEENT: normocephalic, atraumatic Respiratory/Chest: chest wall non-tender, lungs clear Cardiovascular: normal peripheral pulses Abdomen: normal bowel sounds, no organomegaly Extremities: no cyanosis Skin: no rash Microbiology Date/Time Source Procedure Growth Status 01/08/17 02:00 Blood Blood Culture - Preliminary NO GROWTH AFTER 48 HOURS Resulted 01/08/17 01:45 Blood Blood Culture - Preliminary NO GROWTH AFTER 48 HOURS Resulted 01/08/17 02:00 Urine,Clean Catch Urine Culture - Final NO GROWTH AFTER 48 HOURS Complete Laboratory Tests 01/10/17 07:00: White Blood Count 5.8, Red Blood Count 5.17, Hemoglobin 15.1, Hematocrit 48.6H, Mean Corpuscular Volume 94, Mean Corpuscular Hemoglobin 29.3, Mean Corpuscular Hemoglobin Concent 31.1L, Red Cell Distribution Width 14.2, Platelet Count 313, Mean Platelet Volume 6.7, Neutrophils (%) (Auto) 64.5, Lymphocytes (%) (Auto) 27.1, Monocytes (%) (Auto) 6.0, Eosinophils (%) (Auto) 0.6, Basophils (%) (Auto ) 1.8, Sodium Level 143, Potassium Level 4.0, Chloride Level 101, Carbon Dioxide Level 26, Anion Gap 16H, Blood Urea Nitrogen 28H, Creatinine 1.4H, Estimat Glomerular Filtration Rate 46.9, Glucose Level 146H, Calcium Level 9.8, Total Bilirubin 0.5, Aspartate Amino Transf (AST/SGOT) 14, Alanine Aminotransferase (ALT/SGPT) 24, Alkaline Phosphatase 128H, Troponin I < 0.30, Pro-B-Type Natriuretic Peptide 683H, Total Protein 6.5L, Albumin 3.6, Globulin 2.9, Albumin/Globulin Ratio 1.2 Current Medications Medications (Trade) Dose Ordered Sig/Suzanne Route PRN Reason Start Time Stop Time Status Last Admin Dose Admin Acetaminophen (Tylenol) 650 mg Q4H PRN ORAL Fever 01/08/17 06:15 02/07/17 06:14 01/09/17 00:22 Albuterol/ Ipratropium (DuoNeb 0.5-3(2.5)mg/3ml) 3 ml EVERY 4 HOURS PRN HHN Shortness of Breath 01/08/17 06:15 01/13/17 06:14 Dextrose STAT PRN IV Hypoglycemia 01/08/17 06:15 02/07/17 06:14 Furosemide (Lasix) 20 mg EVERY 8 HOURS IV 01/09/17 14:30 02/08/17 14:29 01/10/17 06:43 Heparin Sodium (Porcine) (Heparin 5000 units/ml) 5,000 units EVERY 12 HOURS SUBQ 01/08/17 09:00 02/07/17 08:59 01/10/17 08:32 Levofloxacin (Levaquin) 50 ml @ 50 mls/hr Q24H IVPB 01/10/17 13:00 01/15/17 12:59 Lisinopril (Zestril) 2.5 mg Q12HR ORAL 01/09/17 21:00 02/08/17 20:59 01/09/17 21:21 Ondansetron HCl (Zofran) 4 mg Q6H PRN IVP Nausea & Vomiting 01/08/17 06:15 02/07/17 06:14 Polyethylene Glycol (Miralax) 17 gm DAILYPRN PRN ORAL Constipation 01/08/17 06:15 02/07/17 06:14 Temazepam (Restoril) 15 mg HSPRN PRN ORAL Insomnia 01/08/17 06:15 01/15/17 06:14 01/08/17 10:46 VIRGIL DUFFY Jan 10, 2017 11:30
--- NOTE | 2017-01-10 11:32 | Diagnostic Imaging Report ---
Indications: DYSPNEA Technique: Portable AP chest Findings: Comparison: 01/09/17 Cardiomegaly, pulmonary vascular redistribution, bilateral interstitial infiltrates, apparent small left pleural effusion persist, decreased. Hazy alveolar opacity in the left midlung has resolved with appearance of small linear density in this location. No new abnormality identified. IMPRESSION: Improvement in bilateral congestive changes Disappearance of alveolar opacity left midlung except for residual linear opacity. Rapidity of change favors resolving atelectasis or edema as opposed to pneumonia
[2017-01-10] MEDS: Levofloxacin 250mg/D5W 50ml IVPB SCH (13:43)
[2017-01-10 16:05] VITALS: BP 106/66
--- NOTE | 2017-01-10 18:11 | Cardiology Progress Note ---
Assessment/Plan Assessment/Plan [id number] cm chf mr cocaine abuse tobacco use do diurtic swith to po acei bbin a few dasy na fluid restiriction fully d/w pt [place] of coaine / tobacoo d/w pt dc reyna needs to se cardiologit [facility] health plan once dcd understood Subjective Cardiovascular: Denies: chest pain, lightheadedness Respiratory: Denies: shortness of breath Gastrointestinal/Abdominal: Denies: abdominal pain Genitourinary: Denies: burning Subjective feel alot better Objective Last 24 Hour Vital Signs Date Time Temp Pulse Resp B/P Pulse Ox O2 Delivery O2 Flow Rate FiO2 01/10/17 16:05 97.2 95 18 106/66 98 Nasal Cannula 3.0 01/10/17 16:00 87 01/10/17 12:00 87 01/10/17 11:28 97.0 72 18 115/77 98 Nasal Cannula 3.0 01/10/17 08:31 104/61 01/10/17 08:25 97.5 91 20 104/61 95 Nasal Cannula 3.0 01/10/17 08:00 86 01/10/17 06:33 Nasal Cannula 2.0 01/10/17 06:32 99 Nasal Cannula 2.0 01/10/17 06:32 96 20 Nasal Cannula 2.0 01/10/17 04:00 98 01/10/17 03:57 97.7 92 20 110/73 97 Nasal Cannula 3.0 01/10/17 00:00 88 01/10/17 00:00 97.7 93 20 117/69 Nasal Cannula 3.0 01/09/17 21:21 127/78 01/09/17 20:00 96 01/09/17 20:00 97.9 92 20 127/78 Nasal Cannula 3.0 01/09/17 19:33 99 Nasal Cannula 2.0 28 01/09/17 19:33 Nasal Cannula 2.0 28 01/09/17 19:33 90 20 Nasal Cannula 2.0 28 General Appearance: no apparent distress, alert Neck: supple Cardiovascular: normal rate, regular rhythm Respiratory/Chest: lungs clear, normal breath sounds Abdomen: non tender, soft Extremities: no swelling Intake and Output 01/09/17 01/10/17 19:00 07:00 Intake Total 700 ml 100 ml Output Total 800 ml 1100 ml Balance -100 ml -1000 ml Intake Oral 600 ml 100 ml IV Total 100 ml Output Urine Total 800 ml 1100 ml Laboratory Tests Test 01/10/17 07:00 White Blood Count 5.8 K/UL (4.8-10.8) Red Blood Count 5.17 M/UL (4.20-5.40) Hemoglobin 15.1 G/DL (12.0-16.0) Hematocrit 48.6 % (37.0-47.0) H Mean Corpuscular Volume 94 FL (80-99) Mean Corpuscular Hemoglobin 29.3 PG (27.0-31.0) Mean Corpuscular Hemoglobin Concent 31.1 G/DL (32.0-36.0) L Red Cell Distribution Width 14.2 % (11.6-14.8) Platelet Count 313 K/UL (150-450) Mean Platelet Volume 6.7 FL (6.5-10.1) Neutrophils (%) (Auto) 64.5 % (45.0-75.0) Lymphocytes (%) (Auto) 27.1 % (20.0-45.0) Monocytes (%) (Auto) 6.0 % (1.0-10.0) Eosinophils (%) (Auto) 0.6 % (0.0-3.0) Basophils (%) (Auto) 1.8 % (0.0-2.0) Sodium Level 143 mEQ/L (135-145) Potassium Level 4.0 mEQ/L (3.4-4.9) Chloride Level 101 mEQ/L (98-107) Carbon Dioxide Level 26 mEQ/L (20-30) Anion Gap 16 (5-15) H Blood Urea Nitrogen 28 mg/dL (7-23) H Creatinine 1.4 mg/dL (0.5-0.9) H Estimat Glomerular Filtration Rate 46.9 mL/min (>60) Glucose Level 146 mg/dL (74-106) H Calcium Level 9.8 mg/dL (8.6-10.2) Total Bilirubin 0.5 mg/dL (0.0-1.2) Aspartate Amino Transf (AST/SGOT) 14 U/L (5-40) Alanine Aminotransferase (ALT/SGPT) 24 U/L (3-33) Alkaline Phosphatase 128 U/L (35-104) H Troponin I < 0.30 ng/mL (<=0.30) Pro-B-Type Natriuretic Peptide 683 pg/mL (0-125) H Total Protein 6.5 g/dL (6.6-8.7) L Albumin 3.6 g/dL (3.5-5.2) Globulin 2.9 g/dL Albumin/Globulin Ratio 1.2 (1.0-2.7) Microbiology Date/Time Source Procedure Growth Status 01/08/17 02:00 Blood Blood Culture - Preliminary NO GROWTH AFTER 48 HOURS Resulted 01/08/17 01:45 Blood Blood Culture - Preliminary NO GROWTH AFTER 48 HOURS Resulted 01/08/17 02:00 Urine,Clean Catch Urine Culture - Final NO GROWTH AFTER 48 HOURS Complete BILL ALBERT Jan 10, 2017 18:11
[2017-01-10 20:00] VITALS: BP 122/85
[2017-01-11] VITALS: BP 105/71
[2017-01-11 04:00] VITALS: BP 105/74
--- NOTE | 2017-01-11 07:59 | Cardiology Report ---
APPROVED REPORT EXAM: Two-dimensional and M-mode echocardiogram with Doppler and color Doppler. INDICATION Left Ventricular Function M-Mode DIMENSIONS IVSd1.0 (0.7-1.1cm)Left Atrium (MM)4.0 (1.6-4.0cm) LVDd6.8 (3.5-5.6cm)Aortic Root2.7 (2.0-3.7cm) PWd0.6 (0.7-1.1cm)Aortic Cusp Exc.1.7 (1.5-2.0cm) LVDs5.5 (2.5-4.0cm) PWs1.2 cm Mild left ventricular enlargement. There is thinning of the anteroseptal wall as well as aneurysmal formation. Anteroseptal, anterolateral and septal wall akinesia is seen. Ischemic cardiomyopathy cannot be ruled out. Left ventricular ejection fraction is estimated at 30-35 %. No evidence of ventricular hypertrophy. Trace pericardial effusion. Large pleural effusion. Mild left atrial enlargement. Right cardiac chamber sizes are within normal limits. Mild focal aortic valve sclerosis with adequate cusp excursion. Mildly thickened mitral valve leaflets with normal excursion. Mild mitral annulus and aortic root calcification. Normal pulmonic valve structure. Normal tricuspid valve structure. IVC at normal size with physiologic collapse. A color flow and spectral Doppler study was performed and revealed: No aortic regurgitation. Severe mitral regurgitation. Mitral diastolic velocities shows E/A near equalization suggesting beginning of reduced left ventricular relaxation c/w diastolic dysfunction. Trace tricuspid regurgitation. Tricuspid systolic velocities suggests peak right ventricular systolic pressure of 10 mmHg. Mild pulmonic regurgitation present.
[2017-01-11 08:42] VITALS: BP 103/55
[2017-01-11] MEDS ORDERED: Furosemide 40mg tab ORAL SCH (09:00)
[2017-01-11] MEDS: Lisinopril 2.5mg tab ORAL SCH (09:00)
[2017-01-11] MEDS: Heparin 5000 units/ml inj SUBQ SCH (09:22)
[2017-01-11 12:00] VITALS: BP 100/71
[2017-01-11] MEDS: Levofloxacin 250mg/D5W 50ml IVPB SCH (13:00)
[2017-01-11 15:29] VITALS: BP 135/79
--- NOTE | 2017-01-11 16:50 | Cardiology Progress Note ---
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 health plan once dcd she indicated understanding Subjective Cardiovascular: Denies: chest pain, lightheadedness Respiratory: Denies: shortness of breath Gastrointestinal/Abdominal: Denies: abdominal pain Genitourinary: Denies: burning Subjective feel alot better Objective Last 24 Hour Vital Signs Date Time Temp Pulse Resp B/P Pulse Ox O2 Delivery O2 Flow Rate FiO2 01/11/17 15:29 97.7 97 18 135/79 98 Nasal Cannula 2.0 01/11/17 12:00 97.9 95 20 100/71 97 Nasal Cannula 3.0 01/11/17 12:00 84 01/11/17 09:00 103/55 01/11/17 08:42 97.0 87 20 103/55 96 Nasal Cannula 3.0 01/11/17 08:00 80 01/11/17 06:30 Room Air 21 01/11/17 06:30 98 Room Air 21 01/11/17 06:30 90 19 Room Air 21 01/11/17 05:29 90 01/11/17 04:00 97.2 89 19 105/74 98 Room Air 01/11/17 00:00 97.6 91 20 105/71 98 Room Air 01/11/17 00:00 81 01/10/17 21:26 122/85 01/10/17 20:00 95 01/10/17 20:00 97.8 101 21 122/85 100 Room Air 01/10/17 19:35 98 Room Air 01/10/17 19:35 Room Air 01/10/17 19:34 105 20 Nasal Cannula 2.0 General Appearance: alert Neck: supple Cardiovascular: normal rate, regular rhythm Respiratory/Chest: lungs clear, normal breath sounds Abdomen: normal bowel sounds, non tender, soft Extremities: no swelling Intake and Output 01/10/17 01/11/17 19:00 07:00 Intake Total 360 ml Output Total 1450 ml 700 ml Balance -1090 ml -700 ml Intake Oral 360 ml Output Urine Total 1450 ml 700 ml BILL ALBERT Jan 11, 2017 16:50
--- NOTE | 2017-01-11 16:51 | Cardiology Progress Note ---
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 once dcd she indicated understanding Subjective Subjective feel alot better Objective Last 24 Hour Vital Signs Date Time Temp Pulse Resp B/P Pulse Ox O2 Delivery O2 Flow Rate FiO2 01/11/17 15:29 97.7 97 18 135/79 98 Nasal Cannula 2.0 01/11/17 12:00 97.9 95 20 100/71 97 Nasal Cannula 3.0 01/11/17 12:00 84 01/11/17 09:00 103/55 01/11/17 08:42 97.0 87 20 103/55 96 Nasal Cannula 3.0 01/11/17 08:00 80 01/11/17 06:30 Room Air 21 01/11/17 06:30 98 Room Air 21 01/11/17 06:30 90 19 Room Air 21 01/11/17 05:29 90 01/11/17 04:00 97.2 89 19 105/74 98 Room Air 01/11/17 00:00 97.6 91 20 105/71 98 Room Air 01/11/17 00:00 81 01/10/17 21:26 122/85 01/10/17 20:00 95 01/10/17 20:00 97.8 101 21 122/85 100 Room Air 01/10/17 19:35 98 Room Air 01/10/17 19:35 Room Air 01/10/17 19:34 105 20 Nasal Cannula 2.0 Intake and Output 01/10/17 01/11/17 19:00 07:00 Intake Total 360 ml Output Total 1450 ml 700 ml Balance -1090 ml -700 ml Intake Oral 360 ml Output Urine Total 1450 ml 700 ml BILL ALBERT Jan 11, 2017 16:51
[2017-01-11] MEDS ORDERED: NS 275ml ONE (16:54)
--- NOTE | 2017-01-11 23:29 | Pulmonology Progress Note ---
Assessment/Plan Problems: (1) Acute respiratory failure with hypoxia (2) COPD (chronic obstructive pulmonary disease) (3) CHF exacerbation (4) Asthma exacerbation (5) Cocaine abuse Assessment/Plan improving respiratory treatment. awaiting cardiology continue lasix dc home when ok with cardiology Subjective Allergies: Coded Allergies: No Known Allergies (Unverified , 01/08/17) Objective Last 24 Hour Vital Signs Date Time Temp Pulse Resp B/P Pulse Ox O2 Delivery O2 Flow Rate FiO2 01/11/17 15:29 97.7 97 18 135/79 98 Nasal Cannula 2.0 01/11/17 12:00 97.9 95 20 100/71 97 Nasal Cannula 3.0 01/11/17 12:00 84 01/11/17 09:00 103/55 01/11/17 08:42 97.0 87 20 103/55 96 Nasal Cannula 3.0 01/11/17 08:00 80 01/11/17 06:30 Room Air 21 01/11/17 06:30 98 Room Air 21 01/11/17 06:30 90 19 Room Air 21 01/11/17 05:29 90 01/11/17 04:00 97.2 89 19 105/74 98 Room Air 01/11/17 00:00 97.6 91 20 105/71 98 Room Air 01/11/17 00:00 81 Intake and Output 01/10/17 01/11/17 19:00 07:00 Intake Total 360 ml Output Total 1450 ml 700 ml Balance -1090 ml -700 ml Intake Oral 360 ml Output Urine Total 1450 ml 700 ml VIRGIL DUFFY Jan 11, 2017 23:29
--- NOTE | 2017-01-13 07:47 | Discharge Summary ---
Discharge Summary Hospital Course Date of Admission Jan 08, 2017 at 02:30 Date of Discharge Jan 11, 2017 at 16:55 Admitting Diagnosis Congestive heart failure HPI Sarah Masterson is a 56 year old female who was admitted on Jan 08, 2017 at 02 :30 for Congestive Heart Failure Hospital Course dc summary [id number] Discharge Medications Continued Medications: Mometasone/Formoterol (Dulera 100 Mcg/5 Mcg Inhaler) 13 Gm Hfa.aer.ad 2 PUFFS INH EVERY 12 HOURS Discharge Condition Upon Discharge: stable Discharge Disposition Patient was discharged to Home () Discharge Diagnoses: Discharge Instructions Discharge Instructions Special Instructions I have been assigned to complete a D/C Summary on this account. I was not involved in the patient management Zulay Claire NP (Vanchtein) Jan 13, 2017 07:47
--- NOTE | 2017-01-13 11:18 | Discharge Summary 2 SIG ---
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 The patient reported progressive hypoxemia, which was getting worse. Patient used nebulizer at home without relief. Upon evaluation, the patient was found to be hypoxic in respiratory distress. She required BiPAP placement. In the emergency room, received IV Lasix and IV steroid. Slight improvement noted, patient was able to be weaned from BiPAP and transferred to telemetry for further management. ADMITTING DIAGNOSES: 1. Acute hypoxemic respiratory failure. 2. Congestive heart failure exacerbation. 3. Chronic obstructive pulmonary disease/asthma exacerbation. 4. Cocaine abuse. 5. History of tobacco abuse. HOSPITAL COURSE: The patient was admitted to telemetry floor. The patient was started on IV diuretic. Intake and output, renal parameters, and electrolytes were closely monitored. Sodium and fluid restriction were implemented. Urine toxicology screen was positive for cocaine. Scientific Illustrator had seen the patient. No beta-aristeo due to cocaine abuse. Patient was started on YE, low dose. Supplemental oxygen and pulmonary toilet provided as needed. The patient was on empiric antibiotics. Sputum culture was not sent, unable to produce specimen. Blood and urine culture, both were negative. Initial pro BNP elevated at 5028. Serial troponin x3 negative. Followup pro BNP down to 683. Initial chest x-ray with evidence of congestive heart failure. Chest x-ray prior to discharge revealed significant improvement. Venous duplex of bilateral lower extremities was negative. Echocardiogram revealed ejection fraction of 30% to 35%, right ventricular systolic pressure of 10 as well as evidence of severe mitral regurgitation. Scientific Illustrator discussed with the patient severity of her condition. The patient was counseled on avoidance of illicit street drugs and continue to be abstinent from smoking. The patient needs to see air and missile defense crewmember per her insurance plan . Scientific Illustrator discussed need to see air and missile defense crewmember and the seriousness of patient condition in presence of the family. The patient verbalized understanding. DISCHARGE DIAGNOSES: 1. Acute hypoxemic respiratory failure requiring BiPAP, resolved. 2. Acute systolic congestive heart failure exacerbation. 3. Chronic obstructive pulmonary disease/asthma exacerbation. 4. Cocaine abuse. 5. History of tobacco abuse. 6. Cardiomyopathy. 7. Severe mitral regurgitation. DISCHARGE MEDICATIONS: See medication reconciliation list. DISCHARGE INSTRUCTIONS: The patient was discharged home. Follow up with the air and missile defense crewmember per insurance plan for further management and close followup. Fabio Garcia M.D. I have been assigned to dictate discharge summary on this account and I was not involved in the patient's management. Zulay Claire (Vanchtein) NRussel DR: SERENA JOB#: [id number] CC: GIL
== END 2017-01-11 16:55 | disposition home or self-care (01) | DRG 194 ==
LOC: EDBD 01:34 → EMR 01:58 → 2E 02:30 → EDBEDREQ 04:15
PROC: 5A0935Z Assistance with Respiratory Ventilation, Less than 24 Consecutive Hours (ICD-10-PCS; principal; 2017-01-08)
DX: I50.23 Acute on chronic systolic (congestive) heart failure (principal); J96.01 Acute respiratory failure with hypoxia; J44.1 Chronic obstructive pulmonary disease with (acute) exacerbation; F14.10 Cocaine abuse, uncomplicated; Z87.891 Personal history of nicotine dependence; I42.9 Cardiomyopathy, unspecified; I34.0 Nonrheumatic mitral (valve) insufficiency
CPT/HCPCS: 36415; 71010; 76775; 80048; 80053; 80069; 80300; 81003; 82550; 82553; 83605; 83880; 84484; 85025; 85610; 85730; 87040; 87086; 93005; 93306; 93970; 94640; 94664; 94760

== ENCOUNTER 2018-04-03 18:08 | Emergency (ER) | payer OTHER ==
[~2018-04-03] VITALS: Ht 160 cm; Wt 45.4 kg
[~2018-04-03 18:08] MED LIST: DULERA 100 MCG/13 GM INH
[2018-04-03 19:00] VITALS: BP 96/81
[2018-04-03 19:09] LABS: BASOPHILS % (AUTO) 1.2 % (0.0-2.0); EOSINOPHILS % (AUTO) 0.1 % (0.0-3.0); HEMATOCRIT 40.4 % (37.0-47.0); LYMPHOCYTES % (AUTO) 26.8 % (20.0-45.0); MEAN CORPUSCULAR VOLUME 81 FL (80-99); NEUTROPHILS % (AUTO) 63.9 % (45.0-75.0); PLATELET COUNT 279 K/UL (150-450); RED BLOOD COUNT 4.99 M/UL (4.20-5.40); RED CELL DISTRIBUTION WIDTH 20.5 % (11.6-14.8); WHITE BLOOD COUNT 5.3 K/UL (4.8-10.8)
[2018-04-03 19:12] LABS: INR 1.4 (0.9-1.1)
[2018-04-03 19:15] LABS: ANION GAP 8 mmol/L (5-15); BLOOD UREA NITROGEN 23 mg/dL (7-18); CALCIUM 8.9 MG/DL (8.5-10.1); CARBON DIOXIDE 25 MMOL/L (21-32); CHLORIDE 97 MMOL/L (98-107); POTASSIUM 4.3 MMOL/L (3.5-5.1); SODIUM 129 MMOL/L (136-145)
[2018-04-03 19:18] VITALS: BP 99/75
--- NOTE | 2018-04-03 19:22 | Diagnostic Imaging Report ---
EXAM: XR Chest, 1 View CLINICAL HISTORY: CP TECHNIQUE: Frontal view of the chest. COMPARISON: Chest radiograph 01/10/17 FINDINGS: Lungs: No consolidation, pleural effusion, or pneumothorax. Similar- appearing to prior interstitial prominence may represent atypical infection or pulmonary edema in the proper clinical setting. Pleural space: See above. Heart: Interval prominent increase in cardiomediastinal silhouette dimensions, suggesting rapid cardiomegaly or pericardial effusion. Mediastinum: Unremarkable. Bones/joints: Unchanged old, healed right clavicular fracture. IMPRESSION: 1. No consolidation, pleural effusion, or pneumothorax. 2. Interval prominent increase in cardiomediastinal silhouette dimensions, suggesting rapid cardiomegaly or pericardial effusion. 3. Similar-appearing to prior interstitial prominence may represent atypical infection or pulmonary edema in the proper clinical setting. 4. Unchanged old, healed right clavicular fracture.
[2018-04-03 19:30] LABS: ALANINE AMINOTRANSFERASE 25 U/L (12-78); ALBUMIN 2.8 G/DL (3.4-5.0); ALBUMIN/GLOBULIN RATIO 0.7 (1.0-2.7); ALKALINE PHOSPHATASE 261 U/L (46-116); ASPARTATE AMINO TRANSFERASE 41 U/L (15-37); BILIRUBIN,TOTAL 2.5 MG/DL (0.2-1.0)
[2018-04-03 19:31] LABS: BILIRUBIN,DIRECT 1.2 MG/DL (0.0-0.3)
[2018-04-03 19:41] VITALS: BP 105/75
[2018-04-03 20:06] LABS: APPEARANCE,URINE CLEAR; BILIRUBIN, URINE NEGATIVE (NEGATIVE); COLOR,URINE PALE YELLOW; GLUCOSE, URINE (UA) NEGATIVE (NEGATIVE); KETONES,URINE NEGATIVE (NEGATIVE); LEUKOCYTE ESTERASE ,URINE 3+ (NEGATIVE); NITRITE,URINE NEGATIVE (NEGATIVE); PH,URINE 6 (4.5-8.0); PROTEIN,URINE 1+ (NEGATIVE); UROBILINOGEN,URINE NORMAL MG/DL (0.0-1.0)
[2018-04-03 20:31] VITALS: BP 106/79
--- NOTE | 2018-04-03 20:33 | Emergency Room Report ---
History of Present Illness General Chief Complaint: Dyspnea/Respdistress Source: Patient, Medical Record Present Illness HPI This patient c/o chronic sob, chronic leg swelling. She is poorly compliant. She has a nebulizer machine at home which she used without improvement. No cough , no fever. No home oxygen. She admits to frequent cocaine including today. No trauma, no fever, no travel history, no chest pain, no diaphoresis, no nausea, no vomiting, no diarrhea, no abdominal pain. Tolerating po fine, normal urinary output, normal bm. No syncope, LOC, dizziness, lightheadedness, headache. Allergies: Coded Allergies: No Known Allergies (Unverified , 01/08/17) Nursing Documentation-[facility] Past Medical History: No History, Except For Hx Cardiac Problems: Yes Hx Asthma: Yes Hx Cancer: No Hx Gastrointestinal Problems: No Hx Neurological Problems: No Review of Systems Constitutional: Reports: no symptoms Eye: Reports: no symptoms ENT: Reports: no symptoms Respiratory: Reports: see HPI, shortness of breath Cardiovascular: Reports: see HPI, edema Gastrointestinal: Reports: no symptoms Genitourinary: Reports: no symptoms Musculoskeletal: Reports: no symptoms Skin: Reports: no symptoms Psychiatric: Reports: no symptoms Neurological: Reports: no symptoms Endocrine: Reports: no symptoms Hematologic/Lymphatic: Reports: no symptoms Allergic: Reports: no symptoms Physical Exam Vital Signs Date Time Temp Pulse Resp B/P (MAP) Pulse Ox O2 Delivery O2 Flow Rate FiO2 04/03/18 18:12 97.3 86 16 96/75 100 Room Air 97.3 04/03/18 19:18 2.0 Sp02 EP Interpretation: reviewed, normal General Appearance: normal inspection, well appearing, no apparent distress, alert, GCS 15, non-toxic Head: normocephalic, atraumatic Eyes: bilateral eye normal inspection, bilateral eye PERRL, bilateral eye EOMI ENT: normal ENT inspection, hearing grossly normal, normal pharynx, no angioedema, normal voice, moist mucus membranes Neck: normal inspection, full range of motion, supple, no meningismus, no bony tend Respiratory: normal inspection, lungs clear, normal breath sounds, no rhonchi, no respiratory distress, no retraction, no accessory muscle use, no wheezing Cardiovascular #1: normal inspection, regular rate, rhythm, no edema Gastrointestinal: normal inspection, normal bowel sounds, non tender, soft, no mass, non-distended Musculoskeletal: gait/station normal, normal range of motion, other - 3=4+ peripheral edema both lower extremities through proximal thighs Neurologic: normal inspection, alert, oriented x3, responsive, motor strength/ tone normal Psychiatric: normal inspection, judgement/insight normal, memory normal Suicide Risk Assessment: Suicidal Ideation: No Had intent to initiate attempt: No Pt's plan for suicide attempt: No Has means to complete attempt: No Skin: normal inspection, normal color, no rash, warm/dry Medical Decision Making Diagnostic Impression: Primary Impression: CHF (congestive heart failure) ER Course Pt. is completely comfortable from cv/pulm perspective. There is no tachycardia , no tachypnea, no wheezing, no fever, and 100% on RA. Pt. is sleeping comfortably on flat gurney most of ED stay. The CXR without infiltrate and probably unchanged cardiac silhouette. I think patient presented here for rest due to chaotic social situation. EKG Diagnostic Results EP Interpretation: 615 pm: NSR 86, LAD, LBBB Rate: normal Rhythm: NSR ST Segments: no acute changes Rhythm Strip Diag. Results Rhythm Strip Time: 20:30 EP Interpretation: yes Rhythm: NSR, no PVC's, no ectopy Chest X-Ray Diagnostic Results Chest X-Ray Diagnostic Results : Chest X-Ray Ordered: Yes # of Views/Limited/Complete: 1 View Indication: Shortness of Breath EP Interpretation: Yes Interpretation: other - increase in cardiac silhouette compared to last year AP view but similar to one prior to that that was portable Last Vital Signs Date Time Temp Pulse Resp B/P (MAP) Pulse Ox O2 Delivery O2 Flow Rate FiO2 04/03/18 19:41 97.3 85 17 105/75 100 Nasal Cannula 2.0 97.3 Disposition: HOME, SELF-CARE Condition: Stable Referrals: [facility],REFERRING (PCP) Patient Instructions: Shortness of Breath, [id number], Substance Use Disorder Everton Reynoso M.D. Apr 03, 2018 20:33
[2018-04-03 20:51] VITALS: BP 106/79
--- NOTE | 2018-04-09 16:35 | Cardiology Report ---
APPROVED REPORT EKG Measurement Heart [id number] Normal sinus rhythm Left atrial enlargement Left bundle branch block Abnormal ECG
== END 2018-04-03 20:51 | disposition home or self-care (01) ==
LOC: EMR 18:25
DX: I50.9 Heart failure, unspecified (principal); J45.909 Unspecified asthma, uncomplicated
CPT/HCPCS: 36415; 71045; 80053; 80307; 81001; 82248; 83880; 84484; 85025; 85610; 93005; 99283; J1940

== ENCOUNTER 2018-04-15 00:52 | Emergency (ER) | payer OTHER ==
[~2018-04-15] VITALS: Ht 160 cm; Wt 63.5 kg
[2018-04-15 01:00] VITALS: BP 116/70
[2018-04-15] MEDS ORDERED: FUROSEMIDE40 MG ORAL (01:09)
[2018-04-15] MEDS ORDERED: JANUVIA100 MG ORAL (01:09)
[2018-04-15] MEDS ORDERED: VITAMIN D 2 PO (01:09)
[2018-04-15] MEDS ORDERED: CARVEDILOL6.25 MG ORAL (01:09)
[2018-04-15] MEDS ORDERED: AUGMENTIN 875-1 EAC1 ORAL (01:09)
[2018-04-15] MEDS ORDERED: DOXYCYCLINE PO (01:09)
[2018-04-15] MEDS ORDERED: VENTOLIN HFA18 GM INH (01:09)
[2018-04-15] MEDS ORDERED: KLOR-CON M2020 MEQ ORAL (01:09)
[2018-04-15] MEDS ORDERED: SPIRONOLACTONE25 MG ORAL (01:09)
[2018-04-15] MEDS ORDERED: Albuterol ud Inhalation HHN ONE (01:15)
[2018-04-15] MEDS ORDERED: Ipratropium 0.02% Inh Soln 2.5ml UD HHN ONE (01:15)
[2018-04-15 01:19] LABS: BASOPHILS % (AUTO) 1.2 % (0.0-2.0); EOSINOPHILS % (AUTO) 0.1 % (0.0-3.0); HEMATOCRIT 40.4 % (37.0-47.0); LYMPHOCYTES % (AUTO) 17.4 % (20.0-45.0); MEAN CORPUSCULAR VOLUME 79 FL (80-99); MONOCYTES % (AUTO) 7.6 % (1.0-10.0); NEUTROPHILS % (AUTO) 73.7 % (45.0-75.0); PLATELET COUNT 162 K/UL (150-450); RED BLOOD COUNT 5.12 M/UL (4.20-5.40); RED CELL DISTRIBUTION WIDTH 19.8 % (11.6-14.8); WHITE BLOOD COUNT 7.4 K/UL (4.8-10.8)
[2018-04-15] MEDS ORDERED: Ipratropium 0.02% Inh Soln 2.5ml UD ONE (01:21)
[2018-04-15] MEDS ORDERED: Albuterol ud Inhalation ONE (01:21)
[2018-04-15 01:29] LABS: ANION GAP 13 mmol/L (5-15); BLOOD UREA NITROGEN 33 mg/dL (7-18); CALCIUM 8.7 MG/DL (8.5-10.1); CARBON DIOXIDE 22 MMOL/L (21-32); CHLORIDE 94 MMOL/L (98-107); CREATININE 1.2 MG/DL (0.55-1.30); POTASSIUM 4.6 MMOL/L (3.5-5.1); SODIUM 129 MMOL/L (136-145)
[2018-04-15 01:42] LABS: ALANINE AMINOTRANSFERASE 45 U/L (12-78); ALBUMIN 2.7 G/DL (3.4-5.0); ALBUMIN/GLOBULIN RATIO 0.8 (1.0-2.7); ALKALINE PHOSPHATASE 266 U/L (46-116); ASPARTATE AMINO TRANSFERASE 35 U/L (15-37); BILIRUBIN,TOTAL 2.3 MG/DL (0.2-1.0); CKMB 2.3 NG/ML (0.0-3.6); CREATINE KINASE 125 U/L (26-308)
[2018-04-15 01:44] LABS: BILIRUBIN,DIRECT 1.6 MG/DL (0.0-0.3)
[2018-04-15 02:00] VITALS: BP 121/68
[2018-04-15 02:50] VITALS: BP 121/68
--- NOTE | 2018-04-15 02:52 | Emergency Room Report ---
History of Present Illness General Chief Complaint: Dyspnea/Respdistress Source: Patient Present Illness HPI 57-year-old female presents ED complaining of shortness of breath. Coming from home. States she feels fluid in her lungs. History of CHF and COPD. Also complaining of chest pain, sharp, 7 out of 10, nonradiating. Denies fevers or chills. Denies cough. Symptoms started today. States she was recently discharged from the hospital. Does not know which hospital she was admitted to. No other aggravating relieving factors. Denies any other associated symptoms Allergies: Coded Allergies: No Known Allergies (Unverified , 01/08/17) Patient History Past Medical History: HTN, CHF, asthma, COPD Pertinent Family History: none Social History: Reports: drug use; Denies: smoking, alcohol use Now: No Immunizations: UTD Reviewed Nursing Documentation: PMH: Agreed; PSxH: Agreed Nursing Documentation-PMH Hx Cardiac Problems: Yes - CHF Hx Hypertension: Yes Hx Asthma: Yes Hx COPD: Yes Hx Diabetes: Yes Hx Cancer: No Hx Gastrointestinal Problems: No Hx Neurological Problems: No Review of Systems All Other Systems: negative except mentioned in HPI Physical Exam Vital Signs Date Time Temp Pulse Resp B/P (MAP) Pulse Ox O2 Delivery O2 Flow Rate FiO2 04/15/18 00:42 97.0 106 36 116/70 100 Room Air 97.0 04/15/18 01:00 100 04/15/18 01:26 2.0 Sp02 EP Interpretation: reviewed, normal General Appearance: alert, GCS 15, non-toxic, mild distress Head: normocephalic, atraumatic Eyes: bilateral eye normal inspection, bilateral eye PERRL ENT: hearing grossly normal, normal pharynx, no angioedema, normal voice Neck: full range of motion, supple/symm/no masses Respiratory: chest non-tender, crackles, speaking full sentences, wheezing Cardiovascular #1: regular rate, rhythm, no edema Cardiovascular #2: 2+ carotid (R), 2+ carotid (L), 2+ radial (R), 2+ radial (L) , 2+ dorsalis pedis (R), 2+ dorsalis pedis (L) Gastrointestinal: normal bowel sounds, non tender, soft, non-distended, no guarding, no rebound Rectal: deferred Genitourinary: normal inspection, no CVA tenderness Musculoskeletal: back normal, gait/station normal, normal range of motion, non- tender Neurologic: alert, oriented x3, responsive, motor strength/tone normal, sensory intact, speech normal Psychiatric: judgement/insight normal, memory normal, mood/affect normal, no suicidal/homicidal ideation Reflexes: 3+ bicep (R), 3+ bicep (L), 3+ tricep (R), 3+ tricep (L), 3+ knee (R) , 3+ knee (L) Skin: normal color, no rash, warm/dry, well hydrated Lymphatic: no adenopathy Medical Decision Making Diagnostic Impression: Primary Impression: CHF (congestive heart failure) Qualified Codes: I50.9 - Heart failure, unspecified Additional Impressions: COPD (chronic obstructive pulmonary disease) Qualified Codes: J44.9 - Chronic obstructive pulmonary disease, unspecified Cocaine abuse ER Course Hospital Course 57-year-old female presents ED complaining of shortness of breath, leg swelling Differential diagnoses include: ID/unstable angina, contusion, muscle strain, PTX, rib fracture Clinical course Patient placed on stretcher. 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 After initial history and physical I ordered labs, EKG, chest x-ray labs reviewed- no leukocytosis, hemoglobin/hematocrit stable, electrolytes ok, troponins 0.034, [place] [address], cocaine + ABG shows no signficant hypoxia/hypercapnia Chest x-ray- pulmonary congestion, cardiomegaly EKG- LBBB, no atue ischemic changes interpreted by me ASA given. Lasix given. because of insurance patient will be transferred I. I feel this is a highly complex case requiring extensive working including EKG/Rhythm strip, Xray/CT/US, Blood/urine lab work, repeat exams while in ED, and administration of strong opiates/narcotics for pain control, admission to hospital or close patient follow up. Diagnosis - CHF exacerbation, COPD, cocaine abuse transferred in serious condition Labs Test 04/15/18 01:11 04/15/18 01:25 04/15/18 02:00 White Blood Count 7.4 K/UL (4.8-10.8) Red Blood Count 5.12 M/UL (4.20-5.40) Hemoglobin 12.0 G/DL (12.0-16.0) Hematocrit 40.4 % (37.0-47.0) Mean Corpuscular Volume 79 FL (80-99) Mean Corpuscular Hemoglobin 23.4 PG (27.0-31.0) Mean Corpuscular Hemoglobin Concent 29.6 G/DL (32.0-36.0) Red Cell Distribution Width 19.8 % (11.6-14.8) Platelet Count 162 K/UL (150-450) Mean Platelet Volume 8.8 FL (6.5-10.1) Neutrophils (%) (Auto) 73.7 % (45.0-75.0) Lymphocytes (%) (Auto) 17.4 % (20.0-45.0) Monocytes (%) (Auto) 7.6 % (1.0-10.0) Eosinophils (%) (Auto) 0.1 % (0.0-3.0) Basophils (%) (Auto) 1.2 % (0.0-2.0) Sodium Level 129 MMOL/L (136-145) Potassium Level 4.6 MMOL/L (3.5-5.1) Chloride Level 94 MMOL/L (98-107) Carbon Dioxide Level 22 MMOL/L (21-32) Anion Gap 13 mmol/L (5-15) Blood Urea Nitrogen 33 mg/dL (7-18) Creatinine 1.2 MG/DL (0.55-1.30) Estimat Glomerular Filtration Rate 56.0 mL/min (>60) Glucose Level 217 MG/DL (74-106) Calcium Level 8.7 MG/DL (8.5-10.1) Total Bilirubin 2.3 MG/DL (0.2-1.0) Direct Bilirubin 1.6 MG/DL (0.0-0.3) Aspartate Amino Transf (AST/SGOT) 35 U/L (15-37) Alanine Aminotransferase (ALT/SGPT) 45 U/L (12-78) Alkaline Phosphatase 266 U/L (46-116) Total Creatine Kinase 125 U/L (26-308) Creatine Kinase MB 2.3 NG/ML (0.0-3.6) Creatine Kinase MB Relative Index 1.8 Troponin I 0.034 ng/mL (0.000-0.056) Pro-B-Type Natriuretic Peptide 01143 pg/mL (0-125) Total Protein 6.3 G/DL (6.4-8.2) Albumin 2.7 G/DL (3.4-5.0) Globulin 3.6 g/dL Albumin/Globulin Ratio 0.8 (1.0-2.7) Arterial Blood pH 7.527 (7.350-7.450) Arterial Blood Partial Pressure CO2 27.2 mmHg (35.0-45.0) Arterial Blood Partial Pressure O2 281.8 mmHg (75.0-100.0) Arterial Blood HCO3 22.1 mmol/L (22.0-26.0) Arterial Blood Oxygen Saturation 99.9 % (92.0-98.0) Arterial Blood Base Excess 0.4 Terrell Test Positive Urine Opiates Screen Negative (NEGATIVE) Urine Barbiturates Screen Negative (NEGATIVE) Phencyclidine (PCP) Screen Negative (NEGATIVE) Urine Amphetamines Screen Negative (NEGATIVE) Urine Benzodiazepines Screen Negative (NEGATIVE) Urine Cocaine Screen Positive (NEGATIVE) Urine Marijuana (THC) Screen Negative (NEGATIVE) EKG Diagnostic Results Rate: tachycardiac Rhythm: NSR ST Segments: other - LBBB ASA given to the pt in ED: Yes Rhythm Strip Diag. Results EP Interpretation: yes Rhythm: NSR, no PVC's, no ectopy Chest X-Ray Diagnostic Results Chest X-Ray Diagnostic Results : Chest X-Ray Ordered: Yes # of Views/Limited/Complete: 1 View Indication: Shortness of Breath EP Interpretation: Yes Interpretation: no pneumothorax, other - atelectasis/effusion bilaterally Impression: Other - CHF Electronically Signed by: Electronically signed by Gurjit Guzman MD Last Vital Signs Date Time Temp Pulse Resp B/P (MAP) Pulse Ox O2 Delivery O2 Flow Rate FiO2 04/15/18 01:47 100 21 100 Nasal Cannula 2.0 28 04/15/18 01:00 97.0 116/70 97.0 Status: improved Disposition: XFER SHT-TRM HOSP Condition: Serious Referrals: [facility],REFERRING (PCP) Gurjit Guzman MD Apr 15, 2018 02:52
--- NOTE | 2018-04-15 14:45 | Diagnostic Imaging Report ---
Indication: Shortness of breath Technique: One view of the chest Comparison: 04/03/2018 Findings: There is a nodular opacity in the left midlung which is in retrospect probably evident previously, appears larger currently, currently measuring 16 mm in diameter. Reticular and airspace opacity in the right lung base appears similar to the previous exam. There is generalized borderline interstitial congestion. Heart is enlarged Impression: Cardiomegaly with mild interstitial congestion. Left midlung nodular opacity, may be larger than on the previous study. Further follow-up radiographs are recommended
== END 2018-04-15 02:50 | disposition short-term general hospital (02) ==
LOC: EDBD 00:52 → EMR 01:00 → EDBEDREQ 01:13 → EMR 02:50
DX: I11.0 Hypertensive heart disease with heart failure (principal); I50.9 Heart failure, unspecified; J44.9 Chronic obstructive pulmonary disease, unspecified; F14.10 Cocaine abuse, uncomplicated
CPT/HCPCS: 36415; 36600; 71045; 80053; 80307; 82248; 82550; 82553; 82803; 83880; 84484; 85025; 93005; 94640; 99283; J1940